=== PATIENT | female | born 1980 | race African-American/Black ===

== ENCOUNTER 2020-12-12 05:52 | Emergency (ER) | payer OTHER ==
[~2020-12-12] VITALS: Ht 154.9 cm; Wt 110.5 kg
--- NOTE | 2020-12-12 06:45 | PHYS DOC ---
Past History Past Medical History: Diabetes, Hypertension Past Surgical History: Tubal ligation Alcohol Use: Occasionally General Adult EDM: Chief Complaint: Palpitations HPI: HPI: Patient is a 40-year-old female coming in for palpitations and lightheadedness. Patient states she woke up around 3 AM this morning was watching TV in bed when the palpitations started about 30 minutes after waking up. She said she felt little bit lightheaded but denies any chest pain, shortness of breath, headaches or vision changes. Patient states she will occasionally wake up early because of insomnia. Has a history of hypertension diabetes. Checked her blood sugar when it was 82, which he states is little bit low for her. Her palpitations co ntinued until arrival at emergency department. Says her heart rate did not feel irregular but this felt fast. Denies any caffeine, stimulant, drug or alcohol use within the last few hours. Is on lisinopril and recently had her dose increased from 20-40. Review of Systems: Review of Systems: All other systems within normal limits except for as noted in the HPI Allergies: Allergies: Allergies Coded Allergies Type Severity Reaction Last Updated Verified No Known Drug Allergies 12/12/20 No Physical Exam: PE: Constitutional: Well developed, well nourished, no acute distress, non-toxic appearance. [] HENT: Normocephalic, atraumatic, bilateral external ears normal, nose normal. [] Eyes: PERRLA, conjunctiva normal, no discharge. [] Neck: No rigidity, supple, no stridor. [] Cardiovascular: Regular rate and rhythm, brisk cap refill. No murmurs or gallop [] Lungs & Thorax: Non labored symmetric respirations, no tachypnea or respiratory distress. Breath sounds clear to auscultation [] Abdomen: Soft, nondistended. Skin: Warm, dry, no erythema, no rash. [] Back: Unremarkable Extremities: No deformities, range of motion grossly intact, no lower extremity edema [] Neurologic: Alert and oriented X 3, no focal deficits noted. [] Psychologic: Affect normal, judgement normal, mood normal. [] Current Patient Data: Vital Signs: Vital Signs Date Time Temp Pulse Resp B/P (MAP) Pulse Ox O2 Delivery O2 Flow Rate FiO2 12/12/20 05:52 98.7 83 20 171/100 (123) EKG: EKG: [] Radiology/Procedures: Radiology/Procedures: [] Heart Score: C/O Chest Pain: N/A Risk Factors: Risk Factors: DM, Current or recent (<one month) smoker, HTN, HLP, family history of CAD, obesity. Risk Scores: Score 0 - 3: 2.5% MACE over next 6 weeks - Discharge Home Score 4 - 6: 20.3% MACE over next 6 weeks - Admit for Clinical Observation Score 7 - 10: 72.7% MACE over next 6 weeks - Early Invasive Strategies Course & Med Decision Making: Course & Med Decision Making Pertinent Labs and Imaging studies reviewed. (See chart for details) Microcytic anemia on labs, patient states that she just started taking iron again last week at direction from her primary care provider [] Juan Disclaimer: Juan Disclaimer: This electronic medical record was generated, in whole or in part, using a voice recognition dictation system. Departure Departure: Impression: Primary Impression: Palpitations Additional Impression: Microcytic anemia Disposition: 01 DC HOME SELF CARE/HOMELESS Condition: STABLE Referrals: DEON GHOTRA MD (PCP) Patient Instructions: Palpitations Additional Instructions: Continue taking your iron supplements and consider adding vitamin C or a multivitamin. DEB YOST MD Dec 12, 2020 06:45
[2020-12-12 07:00] VITALS: BP 147/92
--- NOTE | 2020-12-12 07:01 | RAD ---
Chest AP only at 0645: Reason for examination: Palpitations The heart size is normal. Mediastinum is unremarkable. Lung oconnor are clear. No acute bony abnormali ties are seen. Impression: No acute cardiopulmonary disease. Electronically signed by: Mayra Arguelles MD (12/12/2020 6:58 AM) RAD[facility]
--- NOTE | 2020-12-12 07:12 | EKG ---
[address] [address] Test Date: 2020-12-12 Test Time: 07:05:50 Pat Name: ERIKA KENNY Department: Room: Gender: F [employer]: HOLLY : 1980 Requested By: DEB YOST Order Number: [id number] Reading MD: Measurements Intervals [place] Rate: 78 P: 45 [place]: 146 QRS: 17 QRSD: 76 T: 4 QT: 410 QTc: 471 Interpretive Statements SINUS RHYTHM OTHERWISE NORMAL ECG RI6.02 No previous ECG available for comparison
[2020-12-12 07:59] LABS: CALCIUM 8.6 mg/dL (8.5-10.1); CREATININE 0.8 mg/dL (0.6-1.0); GFR 95.2
[2020-12-12 08:00] LABS: BASO # 0.1 x10^3/uL (0.0-0.2); BASO % 1 % (0-3); EOS # 0.2 x10^3/uL (0.0-0.7); EOS % 2 % (0-3); HEMATOCRIT 32.5 % (36.0-47.0); HEMOGLOBIN 9.9 g/dL (12.0-15.5); LYMPH # 2.6 x10^3/uL (1.0-4.8); LYMPH % 39 % (24-48); MEAN CORPUSCULAR HEMOGLOBIN 23 pg (25-35); MEAN CORPUSCULAR HGB CONC 30 g/dL (31-37); MEAN CORPUSCULAR VOLUME 75 fL (79-100); MONO # 0.7 x10^3/uL (0.0-1.1); MONO % 10 % (0-9); NEUT # 3.2 x10^3uL (1.8-7.7); NEUT % 47 % (31-73); PLATELET COUNT 365 x10^3/uL (140-400); RED BLOOD COUNT 4.32 x10^6/uL (3.50-5.40); RED CELL DISTRIBUTION WIDTH 17.1 % (11.5-14.5); WHITE BLOOD COUNT 6.7 x10^3/uL (4.0-11.0)
[2020-12-12 08:12] LABS: ALBUMIN 3.2 g/dL (3.4-5.0); ALBUMIN/GLOBULIN RATIO 0.6 (1.0-1.7); MAGNESIUM 1.5 mg/dL (1.8-2.4); TOTAL BILIRUBIN 0.3 mg/dL (0.2-1.0); TOTAL PROTEIN 8.3 g/dL (6.4-8.2)
[2020-12-12] MEDS ORDERED: IOHEXOL 350 MG/ML 100 ML VIAL. IV ONE (08:45)
[2020-12-12 08:49] LABS: BARBITURATES NEG (NEG); BENZODIAZEPINES NEG (NEG); CANNABINOIDS NEG (NEG); COCAINE NEG (NEG); METHADONE NEG (NEG); OPIATES NEG (NEG); PHENCYCLIDINE NEG (NEG)
[2020-12-12 08:51] LABS: AMPHETAMINE/METHAMPHETAMINE NEG (NEG)
[2020-12-12 08:59] LABS: BACTERIA,URINE 0 /HPF (0-FEW); BILIRUBIN,URINE NEG (NEG); CLARITY,URINE HAZY; COLOR,URINE YELLOW; GLUCOSE,URINE NEG (NEG); NITRITE,URINE NEG (NEG); RBC,URINE OCC /HPF (0-2); SQUAMOUS EPITHELIAL CELL,UR MANY /LPF; UROBILINOGEN,URINE 0.2 mg/dL (0.2 mg/dL)
--- NOTE | 2020-12-12 09:37 | RAD ---
EXAM: CT Pulmonary Angiogram INDICATION: Reason: palpitations, PE / Spl. Instructions: 100 CC OMNI 350 / History: TECHNIQUE: Multi-detector row images were acquired from the thoracic inlet through the upper abdomen with the use of IV contrast. Sagittal and coronal images were acquired from the transaxial data. [place] P images of the pulmonary arteries were obtained. All CT scans performed at this facility utilize dos e optimization techniques as appropriate to the exam, including the following: Automated exposure con trol and adjustment of the mA and/or KV according to patient size (this includes techniques or standa rdized protocols for targeted exams where dose is indication/reason for exam). IV CONTRAST: Administered COMPARISON: None FINDINGS: PULMONARY ARTERIES: No pulmonary emboli are identified. CARDIOVASCULAR: Unremarkable Aorta is normal caliber. MEDIASTINUM & ROMMEL: No adenopathy or masses. LUNGS: No pulmonary infiltrate, nodule, or other focal abnormality. PLEURAL SPACE: No pleural effusions or pneumothorax. OSSEOUS & SOFT TISSUE: Unremarkable ABDOMEN: The visualized portions of the upper abdomen are unremarkable. IMPRESSION: No evidence of pulmonary emboli or other acute cardiopulmonary process. Electronically signed by: Cathy Rivera MD (12/12/2020 9:34 AM) [id number]
[2020-12-12 14:29] LABS: BURR CELLS PRESENT; HYPOCHROMIA PRESENT; OVALOCYTES FEW
[2020-12-12 14:30] LABS: SCHISTOCYTES FEW
[2020-12-12 14:31] LABS: PLT ESTIMATE ADEQUATE (ADEQUATE)
== END 2020-12-12 10:11 | disposition home or self-care (01) ==
LOC: ER 05:52
DX: D50.9 Iron deficiency anemia, unspecified (principal); R00.2 Palpitations; E11.9 Type 2 diabetes mellitus without complications; I10 Essential (primary) hypertension; Z98.51 Tubal ligation status
CPT/HCPCS: 36415; 71045; 71275; 80053; 80307; 81001; 81025; 83735; 83880; 84484; 85025; 85379; 93005; 99285; G0480; Q9967